=== PATIENT | male | born 1945 | race African-American/Black ===

== ENCOUNTER 2017-01-20 10:53 | Emergency (ER) | payer MEDICARE, MEDICAID ==
[~2017-01-20] VITALS: Ht 175.3 cm; Wt 95.4 kg
[~2017-01-20 10:53] MED LIST: ASPI81TA39 PO; METH-417 PO; MULT-1192 PO; QUET300T2 PO
[2017-01-20] MEDS ORDERED: HYDROCODONE/ACETAMINOPHEN 5-325 MG TABLET PO ONE (11:30)
[2017-01-20] MEDS ORDERED: BUPIVACAINE HCL/PF 0.25% 10 ML VIAL INJ ONE (12:00)
[2017-01-20] MEDS ORDERED: POVIDONE-IODINE 10% 15 ML SOLUTION UD TP ONE (12:00)
[2017-01-20 13:21] VITALS: BP 134/84
== END 2017-01-20 13:25 | disposition home or self-care (01) ==
LOC: EMS 10:54
DX: L02.212 Cutaneous abscess of back [any part, except buttock and flank] (principal); F17.210 Nicotine dependence, cigarettes, uncomplicated; Z85.46 Personal history of malignant neoplasm of prostate; Z79.82 Long term (current) use of aspirin; I10 Essential (primary) hypertension; E78.00 Pure hypercholesterolemia, unspecified
CPT/HCPCS: 10060; 99284; J3490

== ENCOUNTER 2019-01-17 15:48 | Emergency (ER) | payer MEDICARE, MEDICAID ==
[~2019-01-17] VITALS: Ht 175.3 cm; Wt 95.5 kg
[2019-01-17] MEDS ORDERED: [UNRECOGNIZED DRUG - REMARK] PO (16:01)
[2019-01-17] MEDS ORDERED: QUET100T PO (16:01)
[2019-01-17 16:08] LABS: GLUCOSE,POINT OF CARE 109 MG/DL (70-110)
[2019-01-17 17:07] VITALS: BP 127/74
== END 2019-01-17 17:56 | disposition home or self-care (01) ==
LOC: EMS 15:51
DX: R51 Headache (principal); F17.210 Nicotine dependence, cigarettes, uncomplicated; I10 Essential (primary) hypertension; E78.00 Pure hypercholesterolemia, unspecified; Z79.82 Long term (current) use of aspirin
CPT/HCPCS: 70450; 99406

== ENCOUNTER 2019-02-11 11:07 | Emergency (ER) | payer OTHER, MEDICARE, MEDICAID ==
[~2019-02-11] VITALS: Ht 175.3 cm; Wt 91.0 kg
[~2019-02-11 11:07] MED LIST changes: -METH-417 PO; -MULT-1192 PO; +QUET100T PO; -QUET300T2 PO; +[UNRECOGNIZED DRUG - REMARK] PO
[2019-02-11 11:08] VITALS: BP 141/88
[2019-02-11] MEDS ORDERED: IBUPROFEN 800 MG TABLET PO ONE (12:30)
== END 2019-02-11 13:07 | disposition home or self-care (01) ==
LOC: EMS 11:09
DX: M79.18 Myalgia, other site (principal); E78.00 Pure hypercholesterolemia, unspecified; I10 Essential (primary) hypertension; F17.210 Nicotine dependence, cigarettes, uncomplicated; Z85.46 Personal history of malignant neoplasm of prostate; Z79.899 Other long term (current) drug therapy; V49.9XXA Car occupant (driver) (passenger) injured in unspecified traffic accident, initial encounter; Y93.89 Activity, other specified; Y92.488 Other paved roadways as the place of occurrence of the external cause; Y99.8 Other external cause status